=== PATIENT | female | born 1995 | race Caucasian/White ===

== ENCOUNTER 2017-01-27 10:44 | Emergency (ER) | payer OTHER ==
[2017-01-27 10:51] VITALS: RESP 16; TEMP 98.2; O2SAT 97
--- NOTE | 2017-01-27 11:01 | CPEKG ---
Heart Rate: 90 RR Interval: 667 P-R Interval: 164 QRSD Interval: 90 QT Interval: 368 QTC Interval: 451 P [place]: 75 QRS [place]: 84 T Wave [place]: 60 EKG Severity - NORMAL ECG - EKG Impression: SINUS RHYTHM Electronically Signed By: Sen Cavazos 27-Jan-2017 11:08:27
--- NOTE | 2017-01-27 11:08 | EDPHY ---
H & P Time Seen by Provider: 01/27/17 10:49 HPI/ROS: CHIEF COMPLAINT: Collapsed and shaking HISTORY OF PRESENT ILLNESS: 21-year-old woman is on Wellbutrin 100 mg a day for the last 3 weeks for depression and anxiety. She moved here recently from [place] and was painting. Of note she did have an episode of dizziness lightheadedness and syncope 3 weeks ago in [place]. Her boyfriend who is here said he heard a thud and went upstairs and about 10- 15 seconds later found her lying on the ground with her arms flexed and shaking for about 30 seconds. She was then still unresponsive for another minute and was initially a little bit confused. No incontinence or tongue biting. Currently the patient says she feels tired and fatigued but otherwise has no symptoms. She does not remember anything except working and then waking up to EMS. REVIEW OF SYSTEMS: Eye: no change in vision ENT: no sore throat Cardiac: no chest pain or syncope Pulmonary: no cough or SOB Abdomen: no vomiting, diarrhea, abdominal pain Musculoskeletal: no back pain or neck pain Skin: no rash Neuro: no headache Constitutional: no fever : no urinary symptoms A comprehensive 10 point review of systems is otherwise negative aside from elements mentioned in the history of present illness. PAST MEDICAL HISTORY: Depression anxiety Social history: Infrequent alcohol, no drugs General Appearance: Alert and conversant, cooperative. Eyes: No scleral icterus. ENT, Mouth: Normal mucous membranes. No tongue laceration or abrasion Respiratory: Normal respiratory effort, breath sounds equal, lungs are clear to auscultation. Cardiovascular: Regular rate and rhythm. Gastrointestinal: Abdomen is soft and non tender. Neurological: Alert and oriented x3. Normally conversant. Face symmetric, normal movement and sensation in all extremities. Not tremulous, no pronator drift. Skin: Warm and dry, no rashes. Musculoskeletal: No peripheral edema and no joint swelling. No spinal tenderness. Psychiatric: Not agitated. Emergency Department course/MDM: History suspicious for seizure. Plan for EKG, head CT, labs to include chemistry . 1132: Lab viewed, CO2 17 would be consistent with seizure. Possibly due to Wellbutrin, warned needs to stop the medication. Discussed with pharmacy regarding WellbutrinFanny recommends stop without taper. 1146: Normal noncontrast head CT per Javad. 1215: Discussed with [facility], recommends stop Wellbutrin completely, but warn of withdrawal symptoms for Wellbutrin. Patient warned, would prefer to just stop and take that risk of withdrawal symptoms. Warned no driving until cleared by follow-up physician. Discharge with boyfriend and his father. Smoking Status: Never smoked Constitutional: Initial Vital Signs Temperature (C) 36.8 C 01/27/17 10:50 Heart Rate 82 01/27/17 10:50 Respiratory Rate 16 01/27/17 10:50 Blood Pressure 129/70 H 01/27/17 10:50 O2 Sat (%) 97 01/27/17 10:50 O2 Delivery Mode Room Air Allergies/Adverse Reactions: No Known Allergies Allergy (Unverified 01/27/17 10:49) Home Medications: Medication Instructions Recorded Ativan 01/27/17 Bupropion HCl 01/27/17 Prozac 10 MG (*) 01/27/17 Seroquel 01/27/17 Medical Decision Making - Diagnostics EKG Interpretation: 12-lead EKG interpreted by me; official reading is in trace master. My interpretation is sinus rhythm rate 90 normal intervals. Imaging Results: Imaging Impressions Head CT 01/27/17 11:06 Impression: No acute intracranial findings. If symptoms persist and clinical suspicion warrants, consider MRI. Findings discussed with MERLE RODRIGUEZ 01/27/2017 at 11:44. Differential Diagnosis: Differential diagnosis considered for a seizure including but not limited to syncope or dysrhythmia, electrolyte abnormality, alcohol withdrawal, medication noncompliance, head injury, and breakthrough seizure. - Data Points Laboratory Results: Laboratory Results 01/27/17 10:48 01/27/17 10:48 01/27/17 01/27/17 01/27/17 10:48 10:48 10:48 WBC 6.45 10^3/uL 10^3/uL (3.80-9.50) RBC 4.53 10^6/uL 10^6/uL (4.18-5.33) Hgb 13.9 g/dL g/dL (12.6-16.3) Hct 40.3 % % (38.0-47.0) MCV 89.0 fL fL (81.5-99.8) MCH 30.7 pg pg (27.9-34.1) MCHC 34.5 g/dL g/dL (32.4-36.7) RDW 12.3 % % (11.5-15.2) Plt Count 317 10^3/uL 10^3/uL (150-400) MPV 9.2 fL fL (8.7-11.7) Neut % (Auto) 68.6 % % (39.3-74.2) Lymph % (Auto) 22.9 % % (15.0-45.0) Trigg % (Auto) 5.6 % % (4.5-13.0) Eos % (Auto) 1.4 % % (0.6-7.6) Baso % (Auto) 1.2 % % (0.3-1.7) Nucleat RBC Rel Count 0.0 % % (0.0-0.2) Absolute Neuts (auto) 4.42 10^3/uL 10^3/uL (1.70-6.50) Absolute Lymphs (auto) 1.48 10^3/uL 10^3/uL (1.00-3.00) Absolute Monos (auto) 0.36 10^3/uL 10^3/uL (0.30-0.80) Absolute Eos (auto) 0.09 10^3/uL 10^3/uL (0.03-0.40) Absolute Basos (auto) 0.08 10^3/uL 10^3/uL (0.02-0.10) Absolute Nucleated RBC 0.00 10^3/uL 10^3/uL (0-0.01) Immature Gran % 0.3 % % (0.0-1.1) Immature Gran # 0.02 10^3/uL 10^3/uL (0.00-0.10) Sodium 143 mEq/L mEq/L (134-144) Potassium 3.8 mEq/L mEq/L (3.5-5.2) Chloride 105 mEq/L mEq/L (97-110) Carbon Dioxide 17 mEq/l L mEq/l (22-31) Anion Gap 21 mEq/L H mEq/L (8-16) BUN 14 mg/dL mg/dL (7-23) Creatinine 0.9 mg/dL mg/dL (0.6-1.0) Estimated GFR > 60 Glucose 112 mg/dL H mg/dL (70-100) Calcium 9.7 mg/dL mg/dL (8.5-10.4) Beta HCG, Qual NEGATIVE Departure - Departure Disposition: Home, Routine, Self-Care Clinical Impression: Seizure Condition: Good Instructions: New-Onset Seizure in Adults (ED) Additional Instructions: Stop taking Wellbutrin. It is possible that this medication was responsible for seizures. No driving until cleared by follow-up physician, your referred to the on-call primary care Dr. Vail or on-call neurologist Dr. Cook. Referrals: Julieth Vail MD [Medical Doctor] - As per Instructions Keenan Cook MD [Medical Doctor] - As per Instructions
[2017-01-27 11:12] LABS: % IMMATURE GRANULYOCYTES 0.3 % (0.0-1.1); ABSOLUTE IMMATURE GRANULOCYTES 0.02 10^3/uL (0.00-0.10); ADD DIFF? NO; ADD MORPH? NO; ADD SCAN? NO; ATYPICAL LYMPHOCYTE FLAG 10 (0-99); FRAGMENT RBC FLAG 0 (0-99); HEMATOCRIT 40.3 % (38.0-47.0); HEMOGLOBIN 13.9 g/dL (12.6-16.3); LEFT SHIFT FLG 0 (0-99); LIPEMIA HEMOLYSIS FLAG 90 (0-99); MEAN CELL HEMOGLOBIN 30.7 pg (27.9-34.1); MEAN CELL HEMOGLOBIN CONCENTR. 34.5 g/dL (32.4-36.7); MEAN PLATELET VOLUME 9.2 fL (8.7-11.7); PLATELET CLUMPS FLAG 0 (0-99); PLATELET COUNT 317 10^3/uL (150-400); RED BLOOD CELL COUNT 4.53 10^6/uL (4.18-5.33); RED CELL DISTRIBUTION WIDTH 12.3 % (11.5-15.2)
[2017-01-27 11:17] LABS: ANION GAP 21 mEq/L (8-16); CALCIUM 9.7 mg/dL (8.5-10.4); CARBON DIOXIDE 17 mEq/l (22-31); CHLORIDE 105 mEq/L (97-110); CREATININE 0.9 mg/dL (0.6-1.0); GLOMERULAR FILTRATION RATE > 60; GLUCOSE 112 mg/dL (70-100); POTASSIUM 3.8 mEq/L (3.5-5.2); SODIUM 143 mEq/L (134-144)
[2017-01-27 12:06] VITALS: BP 120/72; PULSE 94
== END 2017-01-27 12:48 | disposition home or self-care (01) ==
DX: R56.9 Unspecified convulsions (principal)